=== PATIENT | female | born 1945 | race Caucasian/White ===

== ENCOUNTER 2017-03-03 09:14 | Emergency (ER) | payer MEDICARE, MEDICAID ==
[~2017-03-03] VITALS: Ht 160 cm; Wt 88.1 kg
[2017-03-03 09:16] VITALS: BP 168/104
[2017-03-03] MEDS ORDERED: KETOROLAC 30 MG/1 ML ONE (09:43)
== END 2017-03-03 10:04 | disposition home or self-care (01) ==
LOC: ED 09:50
DX: M54.16 Radiculopathy, lumbar region (principal); M54.6 Pain in thoracic spine
CPT/HCPCS: 99283